=== PATIENT | male | born 1980 | race Caucasian/White ===

== ENCOUNTER 2024-08-02 16:46 | Emergency (ER) | payer OTHER, SELFPAY ==
[2024-08-02 16:50] VITALS: BP 162/103
[2024-08-02 17:43] VITALS: BMI 26.9
--- NOTE | 2024-08-02 17:50 | ED.GENMED ---
History of Present Illness
General
Chief Complaint: Head Injury
Source: patient
Exam Limitations: none
Time Seen by Provider: 08/02/24 17:49
Nursing documentation reviewed up to this point in time: agreed with
History of Present Illness
History of Present Illness:
44-year-old male with history of ADHD, depression, chronic sinusitis presents emergency department today with concerns of a persistent headache following head injury around a week and a half ago. Patient reports that he works in construction and
was working on a project in [place] when he turned his head quickly and banged the front of his head on a piece of steel. Patient did not lose consciousness at the time. Patient states that he took Excedrin which did relieve his symptoms. Patient
denies any dizziness or lightheadedness. Patient denies any neck pain. Patient denies any visual changes. Patient is also concerned because it seems to be after that injury, he has had some intermittent bleeding from his nose and is concerned
that he might have a fracture in his skull. Patient does have a history of chronic sinusitis he follows with the ENT and reports that he is also felt some facial pain and felt congested recently. Patient denies any sore throat, any chest pain, any
shortness of breath.
Review of Systems
Review of Systems
All Other Systems: ROS reviewed and negative except as documented in HPI and ROS
Phy Exam
Physical Exam
Physical Exam:
General: Patient is well appearing and in no acute distress; non-toxic
Skin: Warm and dry, no rashes or lesions
Head: Normocephalic, atraumatic. TMJ joints intact bilaterally.
Eyes: Sclera non-icteric. EOMs intact.
Nose: Dried blood noted in right nare. No septal hematoma. No tenderness palpation over the facial bones.
Neck: No midline spinal tenderness.
Cardiac: Regular rate and rhythm, no murmurs
Peripheral Vascular: No lower extremity swelling or edema.
Pulm: Normal respiratory effort, no wheezes, rales, or rhonchi
Neuro: CN II-XII intact, no focal neurologic deficits.
Psychiatric: Appropriate mood and affect.
Course
Orders/Labs/Results
Orders:
Orders
08/02/24 18:03
CT Head W/o Iv Contrast Urgent
Comment:
Reason For Exam: persistent headaches, photophobia, dizziness
08/02/24 18:15
COVID-19 Antigen Urgent
Source: Nasal Swab
Complete Blood Count/With Diff Urgent
Comprehensive Metabolic Panel Urgent
Influenza A+B Rapid Molecular Urgent
[place] Source: Nasal Swab
Specimen Description:
08/02/24 18:15
08/02/24 18:15
Vital Signs
Initial and Last Documented VS:
Initial Vital Signs
Temp Pulse Resp BP Pulse Ox
98.2 F 104 18 162/103 97
08/02/24 16:50 08/02/24 16:50 08/02/24 16:50 08/02/24 16:50 08/02/24 16:50
Last Documented Vital Signs
Temp Pulse Resp BP Pulse Ox
98.2 F 93 20 133/99 97
08/02/24 17:57 08/02/24 17:57 08/02/24 17:57 08/02/24 18:00 08/02/24 18:00
MDM/Problems Addressed
Differential Diagnosis Includes:
Differentials include chronic sinusitis, concussion, tension headache, viral syndrome
MDM/Problems Addressed:
44-year-old male presents emergency department today with concerns of persistent headache following blunt head trauma. Patient states that he hit his head on a metal steel beam. Patient not lose consciousness. Patient also notes that he has had
facial pressure recently along with some nosebleeds. On physical exam he is well-appearing in no acute distress, he is CAT scan is negative for any acute intracranial abnormality but did show chronic sinusitis. I believe patient symptoms are
related to chronic sinusitis along with concussive symptoms. This plan to patient that sometimes with sinusitis he can get some nosebleeding and facial pain. Did offer antibiotics however patient prefers to get the opinion from his ENT, patient
states that he will call the office tomorrow. Patient stable for discharge.
Chronic conditions affecting care:
Chronic sinusitis
*Pulse Oximetry
Patient hypoxic: no
*Critical Care Note
Total Time (30-74mins, 75-104mins- exclusive of procedures): Not Applicable
Data Reviewed
Review of Other/Old Records Reveals: Records (Reviewed [facility], no previous ER physician documentation or discharge summary to review)
ED Attending Note
-
Portions of this chart may have been created with voice recognition software.� Occasional wrong word or��sound alike� substitutions may have occurred due to the inherent limitations of voice recognition software.
Discharge Plan
Departure
Patient Disposition: Home (Routine Discharge)
Date of Disposition: 08/02/24
Time of Disposition: 19:52
Patient with high blood pressure during this ER visit?: Yes
Condition: Good
Discharge Problem:
Chronic frontal sinusitis, Head trauma
Instructions: Nosebleeds (DC), Chronic sinusitis, BLOOD PRESSURE
Referrals:
Eleanor Desai MD [Family Provider] -
Activity Restrictions/Additional Instructions:
Your CT scan revealed chronic sinusitis. I suspect this is likely causing your nosebleeds, stuffy nose, and your headaches.
I recommend using mylc-byg-[id number] nasal saline spray to help keep the nasal mucosa moist.
I think it is reasonable to withhold antibiotics at this time and follow-up with your ENT. Please call tomorrow morning for an appointment.
In addition, if you have persistent headaches, this could also represent signs of a concussion. I recommend following up with your primary care provider in 1 to 2 weeks for reassessment.
PLEASE RETURN TO EMERGENCY DEPARTMENT TO DEVELOP AN ACUTE WORSENING OF YOUR SYMPTOMS, VISUAL LOSS, DIZZINESS, LIGHTHEADEDNESS, CHEST PAIN, SHORTNESS OF BREATH, LOSS OF CONSCIOUSNESS, OR ANY OTHER SIGNS OR SYMPTOMS WORRISOME TO YOU.
Interventions
Interventions:
*Risk Screen - Suicide Last Done: 08/02/24 16:50
*General Assessment Last Done: 08/02/24 16:50
*Neglect/Abuse Screening Last Done: 08/02/24 16:50
*ED- Fall Risk Assessment Last Done: 08/02/24 17:43
*ED COVID-19 Vaccine History Last Done: 08/02/24 16:50
*Nursing Disposition Last Done: 08/02/24 19:46
ED-Skin Assessment Last Done: 08/02/24 17:43
ED- Neurological Assessment Last Done: 08/02/24 17:43
ED-EENT Assessment Last Done: 08/02/24 17:43
Discharge Date and Time
Discharge Date/Time: 08/02/24 20:06
Print Language: AMERICAN
[2024-08-02 17:57] VITALS: BP 128/89
[2024-08-02 18:00] VITALS: BP 133/99
[2024-08-02 18:21] LABS: % Basophils 0.3 % (0-2); % Eosinophils 1.2 % (0-6); % Immature Granulocytes 0.3 % (0-0.5); % Neutrophils 69.2 % (42.2-75.2); Absolute Eosinophils 0.1 10^3/uL (0-0.7); Absolute Lymphocytes 2.1 10^3/uL (1.2-3.4); Absolute Monocytes 0.6 10^3/uL (0.1-0.6); Absolute Neutrophils 6.4 10^3/uL (1.4-6.5); Hematocrit 46.4 % (39.0-52.0); Hemoglobin 15.8 g/dL (13.0-18.0); Mean Corp Hgb Conc. 34.1 g/dL (33.0-37.0); Mean Corpuscular Hgb 29.9 pg (27.0-31.0); Mean Corpuscular Volume 87.7 fL (80.0-94.0); Mean Platelet Volume 9.7 fL (7.4-10.4); Nucleated Red Blood Cells % 0 % (-); Platelet Count 292 10^3/uL (130-400); Red Blood Cell Count 5.29 10^6/uL (4.70-6.10); Red Cell Dist. Width 12.7 % (11.5-14.5); White Blood Cell Count 9.2 10^3/uL (4.8-10.8)
[2024-08-02 18:35] LABS: ALT (SGPT) 32 U/L (0-50); AST (SGOT) 26 U/L (17-59); Albumin 4.1 g/dl (3.5-5.0); Alkaline Phosphatase 90 U/L (38-126); Blood Urea Nitrogen 16 mg/dl (9-20); Calcium 9.6 mg/dl (8.4-10.2); Carbon Dioxide 23 mmol/L (22-30); Chloride 106 mmol/L (98-107); Estimated Creatinine Clearance 95 ml/min; Glucose 96 mg/dl (70-99); Potassium 4.3 mmol/L (3.5-5.1); Sodium 136 mmol/L (135-145); Total Bilirubin 0.9 mg/dl (0.2-1.3); Total Protein 6.7 g/dl (6.3-8.2); eGFR > 60.00
[2024-08-02 18:41] LABS: COVID-19 Antigen Negative (Negative)
== END 2024-08-02 20:06 | disposition home or self-care (01) ==
LOC: EMR 16:46
PROVIDERS: Physician Assistant; EMERGENCY PHYSICIAN Emergency Medicine; FAMILY PHYSICIAN Family Medicine
DX: J32.1 Chronic frontal sinusitis (principal); S09.90XA Unspecified injury of head, initial encounter; W22.8XXA Striking against or struck by other objects, initial encounter; F90.9 Attention-deficit hyperactivity disorder, unspecified type
CPT/HCPCS: 99284; 70450; 80053; 85025; 87502; 87811